=== PATIENT | female | born 1980 | race Caucasian/White ===

== ENCOUNTER → 2017-04-05 | Outpatient (CLI) | payer SELFPAY ==
--- NOTE | 2017-04-06 08:19 | USB ---
Reason for exam: clinical finding. Indicated problem(s): lump or thickening in the left breast. Physical Findings: Nurse Summary: All soft nodular movable. Accessory tissue bilateral axilla. Left axilla more prominent tissue (nurse ts). US Breast LT Left breast ultrasound includes all four quadrants, the retroareolar region and axilla. Finding is negative. Left axilla is slightly more prominent, soft tissue, otherwise is within normal limits. These results were verbally communicated with the patient and result sheet given to the patient on 04/05/17. ASSESSMENT: Negative, BI-RAD 1 RECOMMENDATION: Routine screening mammogram of both breasts at age 41. Manage patient on a clinical basis.
== END | disposition home or self-care (01) ==
LOC: RADUSWWP 14:18
PROVIDERS: ATTEND Family Medicine
DX: R22.2 Localized swelling, mass and lump, trunk (principal)

== ENCOUNTER 2017-06-02 10:16 | Day surgery (SDC) | payer OTHER ==
[2017-05-30 10:41] VITALS: BMI 23.3
[~2017-06-02 10:16] MED LIST: DEXAMETHASONE SOD PHOSPHATE 10 MG/ML 1 ML VIAL IV ONE; HEPARIN SODIUM,PORCINE 5,000 UNIT/ML 1 ML VIAL SQ ONE; HYDROmorphone 1 MG/ML 1 ML SYRINGE IVP PRN; LACTATED RINGERS 1,000 ML IV SCH; ONDANSETRON 4 MG/2 ML VIAL IVP PRN; Pre Op ABX Message 1 EACH MISC MISCELLANE ONE; SCOPOLAMINE 1.5MG/72HR PATCH TRANSDERM ONE
[2017-06-02 10:44] VITALS: RESP 16; TEMP 97.4
[2017-06-02] MEDS ORDERED: LIDOCAINE 1% 20 ML VIAL (10MG/ML) FOR IV START INTRADERMA ONE (11:00)
[2017-06-02] MEDS ORDERED: MIDAZOLAM 2 MG/2 ML VIAL IV ONE (11:05)
[2017-06-02] MEDS ORDERED: MIDAZOLAM 2 MG/2 ML VIAL ONE (13:38)
[2017-06-02] MEDS ORDERED: PROPOFOL 10 MG/ML 20 ML VIAL IV ONE (13:38)
[2017-06-02] MEDS ORDERED: fentaNYL (PF) 50 MCG/ML 2 ML AMP ONE (13:38)
[2017-06-02] MEDS ORDERED: SODIUM CHLORIDE 0.9% IV ONE ×2 (13:56)
[2017-06-02] MEDS ORDERED: CLINDAMYCIN IV ONE ×2 (13:56)
[2017-06-02] MEDS ORDERED: LIDOCAINE 2%-EPI 1:100,000 20 ML VIAL SQ ONE ×2 (13:58)
[2017-06-02 15:34] VITALS: BP 91/52; PULSE 89
--- NOTE | 2017-06-05 16:48 | P.OP ---
Date of Procedure: 06/02/17 Preoperative Diagnosis: Left axillary tender mass Postoperative Diagnosis: Same Procedure(s) Performed: Excision left axillary mass Closure of the resulting defect in 2 layers Implants: NA Anesthesia: MAC, local Surgeon: Sara Olmos Pathology: other Condition: stable Disposition: PACU Indications for Procedure: 36 years old female presents with a tender lump in the left axilla. Ultrasound did not show any discrete mass. She continues to feel the tender mass which is ill-defined, mobile on clinical exam. Informed consent obtained and patient elected to undergo surgical excision. Operative Findings: Description of Procedure: The patient was brought to the operating room and placed in supine position with left arm out. The axilla was prepped and draped using sterile aseptic precautions. The palpable mass was felt inferior to the left axillary hairline. 3 cm skin incision was made and this was deepened to the subcutaneous tissue. There was thickened cystic area noted at the site of palpable abnormality. A 3.5 x 3 x 2 cm circumferential breast tissue was removed which included the palpable abnormality. Hemostasis was checked. The cavity was closed in 2 layers using interrupted sutures of 3-0 Vicryl and 4-0 subcuticular Monocryl. The sponge, instrument and needle count were correct 2. Patient tolerated the procedure well and was taken to post anesthesia care unit Final Pathologic Diagnosis SOFT TISSUE, LEFT AXILLARY, EXCISION: BENIGN BREAST TISSUE WITH FIBROCYSTIC CHANGES AND PROMINENT ADIPOSE TISSUE SUGGESTIVE OF A LIPOMA.
== END 2017-06-02 16:15 | disposition home or self-care (01) ==
LOC: OR 10:16
PROVIDERS: ATTEND Surgery
DX: N60.12 Diffuse cystic mastopathy of left breast (principal); Z88.0 Allergy status to penicillin
CPT/HCPCS: 81025; 88305; 21552; J2250; J1644; J1100; J2405; J3010; J2704

== ENCOUNTER → 2018-01-02 | Outpatient (CLI) | payer BC ==
--- NOTE | 2018-01-03 00:56 | WWHP ---
[facility] - HISTORY AND PHYSICAL CHIEF COMPLAINT: The patient is here for her routine gynecologic exam and for control pills. HPI: This is a 37-year-old, G2, P2, with an LMP of 12/12/2017, who is on Necon 0.5/35 oral contraception pills. She has been on oral contraception for many years and has done well with them. She is without gynecologic complaints. PAST MEDICAL HISTORY: Well-controlled chronic hypertension. MEDICATIONS: 1. Tribenzor 20/5/12.5 1 daily. 2. Necon 0.5/35 1 daily. 3. Clindamycin 150 mg q.6 hours, which she is temporarily taking following oral surgery. ALLERGIES: Allergies to PENICILLIN, which caused a rash. PAST SURGICAL HISTORY: Lipoma removed from the left axillary region in 2017 and oral surgery in the past. PAST OB HISTORY: Two vaginal deliveries. 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 SOCIAL HISTORY: She denies tobacco, alcohol, and drug use. She has been since 2013 and this is her second marriage. 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 FAMILY HISTORY: Paternal grandmother and maternal aunt had breast cancer. REVIEW OF SYSTEMS: Weight has been stable. She denies respiratory, cardiac or GI problems. PHYSICAL EXAM: Blood pressure 114/66, height 5 feet 6 inches, weight 137 pounds, BMI 22. Temperature 98.3, pulse 108. This is a well-developed, well-nourished white female who is alert and oriented x3, in no acute distress. HEENT: Within normal limits. NECK: Supple without mass or thyromegaly. CHEST AND LUNGS: Clear to auscultation. HEART: Regular rate and rhythm. Breasts are without mass or discharge. Axillary exam is negative for adenopathy. BACK: Negative for CVA tenderness. ABDOMEN: Soft, nontender, without palpable masses. PELVIC: Normal external genitalia. Cervix and vagina appear normal. There is no unusual discharge. The uterus is retroverted, nongravid size and nontender. There are no palpable adnexal masses or tenderness. Rectal exam is negative for mass or tenderness. EXTREMITIES: Nontender. IMPRESSION: 1. [age] year-old gynecologically healthy female, doing well on oral contraception. 2. Well-controlled chronic hypertension. PLAN: 1. Pap smear was performed. 2. Self breast examination was discussed. 3. Mammogram was done on 04/05/2017 and was benign. 4. We have discussed contraception and control options. She understands that she should not take oral contraception if her blood pressure is not well controlled. We have also discussed increased risk such as increased risk for blood clots, heart attack, and stroke. She understands these things and would like to continue on oral contraception. Prescription for Necon 0.5/35 was given to the patient for the upcoming year. She will do home blood pressure checks daily as she has done in the past. She will call if she is having blood pressure elevations. 5. She will return in 1 year. MMODL / IJN: [id number] /
== END | disposition home or self-care (01) ==
LOC: WWCWWP 14:42
PROVIDERS: ATTEND Obstetrics & Gynecology
DX: Z53.9 Procedure and treatment not carried out, unspecified reason (principal)

== ENCOUNTER → 2018-05-17 | Outpatient (CLI) | payer BC ==
[2018-05-17 18:04] LABS: ALT 32 U/L (9-52); AST 21 U/L (14-36); Albumin 4.3 g/dL (3.5-5.0); Alkaline Phosphatase 47 U/L (38-126); Anion Gap 9 mmol/L; Blood Urea Nitrogen 16 mg/dL (7-17); Calcium 9.7 mg/dL (8.4-10.2); Carbon Dioxide 26 mmol/L (22-30); Chloride 104 mmol/L (98-107); Glucose 87 mg/dL (74-99); Sodium 139 mmol/L (137-145); Total Bilirubin 0.4 mg/dL (0.2-1.3); Total Protein 7.1 g/dL (6.3-8.2)
== END | disposition home or self-care (01) ==
LOC: LABWHC1 17:06
PROVIDERS: ATTEND Internal Medicine Interventional Cardiology
DX: I10 Essential (primary) hypertension (principal)
CPT/HCPCS: 36415; 80053

== ENCOUNTER → 2019-01-08 | Outpatient (CLI) | payer BC ==
[2019-01-08 16:09] VITALS: BP 118/72; PULSE 73; RESP 18; TEMP 97; BMI 23.4
--- NOTE | 2019-01-08 17:02 | P.HPOB ---
History of Present Illness H&P Date: 01/08/19 Chief Complaint: The patient is here for her routine gynecologic exam. This is a 38-year-old with an LMP of 12/11/2018. The patient is on [employer] 0.5/35 for control. She would like to continue on with oral contraception and states she has done well with them. She is feeling a lump in the area between her left breast and axillary region. The lump feels about grape size. She previously had a lipoma removed from the left axillary region in 2017, but the patient states the lump did not seem to go away after the lipoma was removed. She is otherwise without complaints. Review of Systems The patient has gained 6 pounds over the last year. She denies respiratory, cardiac, or G.I. problems. 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 History of Any Multi-Drug Resistant Organisms: None Reported Additional Past Surgical History / Comment(s): Lipoma removed from the left axillary region 2017. Oral surgery. Past Anesthesia/Blood Transfusion Reactions: No Reported Reaction Past Psychological History: No Psychological Hx Reported Smoking Status: Never smoker Past Alcohol Use History: None Reported Past Drug Use History: None Reported Additional History: She has been since 2013 and this is her 2nd marriage. 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 - Past Family History Mother Family Medical History: No Reported History Additional Family Medical History / Comment(s): Maternal aunt had breast cancer. Father Family Medical History: No Reported History Additional Family Medical History / Comment(s): Paternal grandmother had breast cancer. Medications and Allergies Home Medications Medication Instructions Recorded Confirmed Type Olmesartan/Amlodipin/Hcthiazid 1 each PO QAM 05/30/17 01/08/19 History [Tribenzor 40-10-25 mg Tablet] Allergies Allergy/AdvReac Type Severity Reaction Status Date / Time Penicillins Allergy Rash/Hives Verified 06/02/17 10:37 Exam Vital Signs Temp Pulse Resp BP Pulse Ox 01/08/19 16:07 97.0 F L 73 18 118/72 100 Intake and Output 01/08/19 01/08/19 01/08/19 06:59 14:59 22:59 Other: Weight 64.864 kg Height 5 feet 5.5 inches, weight 143 pounds, BMI 23.4. This is a well-developed well-nourished white female who is alert and oriented times 3 in no acute distress. HEENT: Within normal limits. NECK: Supple without mass or thyromegaly. CHEST AND LUNGS: Clear to auscultation. HEART: Regular rate and rhythm. BREASTS: there is a 2 x 2 cm soft mass in the area of the left breast tail near the axilla. It is slightly mobile and nontender. There is no erythema. There are no other breast masses. There is no nipple discharge. AXILLARY EXAM: Negative for adenopathy. BACK: Negative for CVA tenderness. ABDOMEN: Soft, nontender, without palpable masses. PELVIC EXAM: Normal external genitalia. Cervix and vagina appear normal. There is no unusual discharge. There is no evidence of prolapse. The uterus is retroverted, nongravid size and nontender. There are no palpable adnexal masses or tenderness. RECTAL EXAM: negative for mass or tenderness. EXTREMITIES: Nontender. IMPRESSION: 1. 38-year-old female doing well on oral contraception. 2. Mass measuring 2 x 2 cm in the left tail of the breast near the axilla. Differential diagnosis will include lipoma, breast neoplasm, and lymph node enlargement. 3. Family history of breast cancer in 2 second-degree relatives. PLAN: 1. Pap smear was deferred since she had a normal one on 01/02/2018. 2. Self breast awareness was discussed with the patient. 3. We will plan on having her get a baseline diagnostic mammogram and left breast ultrasound. 4. She will be referred to Dr. Lefty Jurado to further evaluate the left breast mass. 5. She will continue oral contraception at this time since I believe the mass most likely represents a benign lipoma. She understands that if this turns out to be a breast neoplasm, there may be the need to discontinue the oral contraception. We also discussed how I would will recommend changing her control method at age 41 as well as of her hypertension. Since it is well- controlled at this time I will allow her to continue using this until age 41. We have discussed other options including tubal sterilization, vasectomy and the IUD. The prescription for Neocon 0.5/3.5 will be sent to [facility] pharmacy on . She will return in one year for her annual woman exam.
== END | disposition home or self-care (01) ==
LOC: WWCWWP 15:54
PROVIDERS: ATTEND Obstetrics & Gynecology
DX: Z53.9 Procedure and treatment not carried out, unspecified reason (principal)

== ENCOUNTER → 2019-02-01 | Outpatient (CLI) | payer BC ==
--- NOTE | 2019-02-01 15:06 | MM ---
Reason for exam: clinical finding. History: Family history of breast cancer in paternal grandmother and breast cancer in aunt at age 40. Taking hormonal contraceptives beginning at age 21. Physical Findings: Nurse Summary: 2cm adenopathy in the left breast (nurse dw). MG 3D Diag Mammo W/Cad GAGANDEEP Bilateral CC and MLO view(s) were taken. There are regional axillary coarse right calcifications, sone on the skin surface associated with a focal asymmetry. Ultrasound will be performed for the focal asymmetry. The skin surface calcifications are benign. Other axillary calcifications may relate to prior trauma, granulomatous disease, Sclerosing adenosis in accessory breast tissue or much less likely neoplasm. These results were verbally communicated with the patient and result sheet given to the patient on 02/01/19. ASSESSMENT: Incomplete: need additional imaging evaluation, BI-RAD 0 RECOMMENDATION: Ultrasound of the right breast. (axilla)
--- NOTE | 2019-02-01 15:07 | USB ---
Reason for exam: additional evaluation requested from abnormal screening. History: Family history of breast cancer in paternal grandmother and breast cancer in aunt at age 40. Taking hormonal contraceptives beginning at age 21. US Breast Limited BILAT Right limited breast ultrasound including focal area of concern, retroareolar and axilla demonstrates no cystic or solid lesion seen. Left complete breast ultrasound includes all four quadrants, the retroareolar region and axilla. Finding demonstrates no cystic or solid lesion seen. No sonographic suspicious findings. These results were verbally communicated with the patient and result sheet given to the patient on 02/01/19. ASSESSMENT: Probably benign, BI-RAD 3 RECOMMENDATION: Follow-up diagnostic mammogram of the right breast in 6 months. Manage patient on a clinical basis.
== END | disposition home or self-care (01) ==
LOC: RADMAMWWP 12:55
PROVIDERS: ATTEND Obstetrics & Gynecology
DX: N63.20 Unspecified lump in the left breast, unspecified quadrant (principal)
CPT/HCPCS: 77062; 77066

== ENCOUNTER → 2019-02-15 | Outpatient (CLI) | payer BC ==
[2019-02-15 15:13] VITALS: BP 107/71; PULSE 84; RESP 16; TEMP 98.1; BMI 22.8
--- NOTE | 2019-02-15 15:36 | P.GSHP ---
History of Present Illness H&P Date: 02/15/19 Chief Complaint: a lump between left breast and axilla Judith is a 38-year-old white female who presents with a complaint of a lump on her left breast between her left breast and axilla. She states in 2017 she had a lesion removed from this site which was consistent with a lipoma and face at the area may have come back. The patient has no pain at that site. She has no other nette or lumps in her breast. She states she noted it about two months ago and it has not changed recently. The patient has no history of any trauma or infection in the breast. The lump does not change in size with respect to her periods. The patien had her first mammogram February 01. She also had an ultrasound on the left side. The patient had a bilateral mammogram performed on 320 919. This revealed regional axillary course right calcifications, no lesions of concern were noted in the left breast The patient had a bilateral ultrasound performed on 320 919. This was benign. The recommendation was for repeat right breast mammogram in 6 months time. Family History: maternal aunt: breast in 50's paternal grandmother: breast cancer Hormonal history: Menarche:14 : G2,P2, first at 25, breast fed: yes periods regular BCP: using it now, used it for years hormones: none Past surgical history: 1. Left axillary lump removed Past medical history: Negative Social History: smoke: none alcohol: none drugs: none - Constitutional Constitutional: Denies chills, Denies fever - EENT Eyes: denies blurred vision, denies pain Ears: deny: decreased hearing, tinnitus Ears, nose, mouth and throat: Denies headache, Denies sore throat - Breasts Breasts: bilateral: as per HPI - Cardiovascular Cardiovascular: Reports high blood pressure, Denies chest pain, Denies shortness of breath - Respiratory Respiratory: Denies cough, Denies 7 - Gastrointestinal Gastrointestinal: Denies abdominal pain, Denies diarrhea, Denies nausea, Denies vomiting - Genitourinary (Female) Genitourinary: Denies dysuria, Denies hematuria - Menstruation Menstruation: Reports period normal - Musculoskeletal Musculoskeletal: Denies myalgias - Integumentary Integumentary: Denies pruritus, Denies rash - Neurological Neurological: Denies numbness, Denies weakness - Psychiatric Psychiatric: Denies anxiety, Denies depression - Endocrine Endocrine: Denies fatigue, Denies weight change - Hematologic/Lymphatic Comment: none - Allergic/Immunologic Allergic/Immunologic: Reports as per HPI Past Medical History Past Medical History: Hypertension 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 History of Any Multi-Drug Resistant Organisms: None Reported Past Surgical History: No Surgical Hx Reported Additional Past Surgical History / Comment(s): Lipoma removed from the left axillary region 2017. Oral surgery. Past Anesthesia/Blood Transfusion Reactions: No Reported Reaction Past Psychological History: No Psychological Hx Reported Smoking Status: Never smoker Past Alcohol Use History: None Reported Past Drug Use History: None Reported - Past Family History Mother Family Medical History: No Reported History Additional Family Medical History / Comment(s): Maternal aunt had breast cancer. Father Family Medical History: No Reported History Additional Family Medical History / Comment(s): Paternal grandmother had breast cancer. Medications and Allergies Home Medications Medication Instructions Recorded Confirmed Type Olmesartan/Amlodipin/Hcthiazid 1 each PO QAM 05/30/17 01/08/19 History [Tribenzor 40-10-25 mg Tablet] Norethindrone-Ethinyl Estrad 1 each PO DAILY #84 tablet 01/08/19 Rx [Necon 0.5-35-28 Tablet] Allergies Allergy/AdvReac Type Severity Reaction Status Date / Time Penicillins Allergy Rash/Hives Verified 02/15/19 15:14 Surgical - Exam Vital Signs Temp Pulse Resp BP Pulse Ox 98.1 F 84 16 107/71 98 02/15/19 15:08 02/15/19 15:08 02/15/19 15:08 02/15/19 15:08 02/15/19 15:08 BMI 23.1 - General well developed, well nourished, no distress - Eyes normal ocular movement - ENT no hearing loss, no congestion - Neck trachea midline - Respiratory normal respiratory effort, clear to auscultation - Cardiovascular Rhythm: regular Heart Sounds: normal: S1, S2 - Abdomen Abdomen: soft, non tender, no guarding, no rigid, no rebound - Integumentary normal turgor - Neurologic no disoriented, no combative - Musculoskeletal normal gait, normal posture - Psychiatric oriented to time, oriented to person, oriented to place, speech is normal, memory intact breast exam: Right breast: Multi-positional exam no dominant masses or nodules of concern, fibrocystic breast changes noted, axillary breast tissue non-worrisome Right axilla: No adenopathy of concern Left breast: Multi-positional exam increased nodularity in the axillary tail region at the site of prior lipoma excision, no dominant masses or nodules of concern otherwise Left axilla: No adenopathy of concern Results Mammogram and ultrasound results reviewed Assessment and Plan Assessment: Impression: 1. Radiographic abnormality right breast 2. Fibrocystic breast changes 3. Prior lipoma removed 4. New onset nodularity in the left axillary tail 5. Family history of cancer 6. Hypertension Plan: 1. FNA of nodularity in the upper quadrant of the left breast/axillary tail region 2. Probable resection of this area and the operating room 3. Medical management of hypertension CC: DR. Thompson, DR. Victor, Dr. Cooper
--- NOTE | 2019-02-15 15:43 | P.PCN ---
Date of Procedure: 02/15/19 Preoperative Diagnosis: Nodularity left breast axillary tail Postoperative Diagnosis: same Procedure(s) Performed: Fine-needle aspiration left axillary tail of breast Anesthesia: none Surgeon: Vidya Davidson Estimated Blood Loss (ml): 0 Pathology: other (FNA of left breast axillary tail nodularity) Disposition: same day Indications for Procedure: Increasing nodular area left axillary breast tail Operative Findings: dense tissue Description of Procedure: The skin over the tissue in the left axillary tail region was prepped using alcohol. The area of nodularity was identified. A 22-gauge needle was used to obtain a specimen. The 22-gauge needle was placed on a 12 mL syringe. Suction was applied and several passes into the area were obtained. Tissue was obtained. This was prepared on slides and sent for pathology. The patient basia rated the procedure in stable condition. She will call the beginning of the week for results of the biopsy. She will be scheduled in the near future for resection of th area depending on the biopsy results. CC: Dr. Thompson
== END | disposition home or self-care (01) ==
LOC: WWCWWP 15:05
PROVIDERS: ATTEND Surgery
DX: N63.32 Unspecified lump in axillary tail of the left breast (principal)
CPT/HCPCS: 88173

== ENCOUNTER → 2019-05-02 | Outpatient (CLI) | payer BC ==
[2019-05-02 16:04] VITALS: BP 114/72; PULSE 77; RESP 16; TEMP 98.3; BMI 23.1
--- NOTE | 2019-05-02 16:19 | P.GSHP ---
History of Present Illness H&P Date: 05/02/19 Chief Complaint: Nodularity lateral aspect of left breast extending to the a xillary tail Judith is a 38-year-old white female who presented with a complaint of a lump in her left breast between her left breast and axilla. She states in 2017 she had a lesion removed from this area which was consistent with a lipoma and feels that this may have returned. The patient has no pain at that site. She has no other masses or lumps in her breasts. She states she noted it initially several months ago and it is not changed recently. She has no history of any trauma or infection of the breast. The lump does not fluctuate with respect to her periods. A F[place] of the [place] of concern [place] [id number] and this showed fragments of adipose tissue. The patient had her first mammogram February 01 and also had an ultrasound of the left side. In the bilateral mammogram revealed axillary course right calcifications no lesions of concern noted in the left breast the ultrasound was felt to be benign. This was also bilateral. Recommendation for repeat right breast mammogram in 6 months time was made. Family history: Maternal aunt: Breast cancer in her 50s Paternal grandmother: Breast cancer Hormonal history: Menarche: 14 Pregnancies: -assisted 25, press-fit: Yes Periods: Regular Postoperative pills colon using them now has used it for several years Hormones: Negative Past surgical history 1. Left axillary lump removed Past medical history HTN Social history: Smoke: Negative Alcohol: Negative Drugs: Negative - Constitutional Constitutional: Denies chills, Denies fever - EENT Eyes: denies decreased vision, denies pain Ears: deny: decreased hearing, tinnitus Ears, nose, mouth and throat: Denies headache, Denies sore throat - Breasts Breasts: bilateral: as per HPI - Cardiovascular Cardiovascular: Denies chest pain, Denies shortness of breath - Respiratory Respiratory: Denies cough, Denies 7 - Gastrointestinal Gastrointestinal: Denies abdominal pain, Denies diarrhea, Denies nausea, Denies vomiting - Genitourinary (Female) Genitourinary: Denies dysuria, Denies hematuria - Menstruation Menstruation: Reports period normal - Musculoskeletal Musculoskeletal: Denies myalgias - Integumentary Integumentary: Denies pruritus, Denies rash - Neurological Neurological: Denies numbness, Denies weakness - Psychiatric Psychiatric: Denies anxiety, Denies depression - Endocrine Endocrine: Denies fatigue, Denies weight change - Hematologic/Lymphatic Hematologic/Lymphatic: Reports as per HPI - Allergic/Immunologic Allergic/Immunologic: Reports as per HPI Past Medical History Past Medical History: Hypertension 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 History of Any Multi-Drug Resistant Organisms: None Reported Past Surgical History: No Surgical Hx Reported Additional Past Surgical History / Comment(s): Lipoma removed from the left axillary region 2017. Oral surgery. Past Anesthesia/Blood Transfusion Reactions: No Reported Reaction Past Psychological History: No Psychological Hx Reported Smoking Status: Never smoker Past Alcohol Use History: None Reported Past Drug Use History: None Reported - Past Family History Mother Family Medical History: No Reported History Additional Family Medical History / Comment(s): Maternal aunt had breast cancer. Father Family Medical History: No Reported History Additional Family Medical History / Comment(s): Paternal grandmother had breast cancer. Medications and Allergies Home Medications Medication Instructions Recorded Confirmed Type Olmesartan/Amlodipin/Hcthiazid 1 each PO QAM 05/30/17 05/02/19 History [Tribenzor 40-10-25 mg Tablet] Norethindrone-Ethinyl Estrad 1 each PO DAILY #84 tablet 01/08/19 05/02/19 Rx [Necon 0.5-35-28 Tablet] Allergies Allergy/AdvReac Type Severity Reaction Status Date / Time Penicillins Allergy Rash/Hives Verified 05/02/19 16:00 Surgical - Exam Vital Signs Temp Pulse Resp BP Pulse Ox 98.3 F 77 16 114/72 100 05/02/19 16:01 05/02/19 16:01 05/02/19 16:01 05/02/19 16:01 05/02/19 16:01 BMI 23.1 - General well developed, well nourished, no distress - Eyes normal ocular movement, no icteric - ENT no hearing loss, no congestion - Neck no masses, trachea midline - Respiratory normal expansion, normal respiratory effort, clear to auscultation - Cardiovascular Rhythm: regular Heart Sounds: normal: S1, S2 - Abdomen Abdomen: soft, non tender, no guarding, no rigid, no rebound - Integumentary no rash, no abnormal pigmentation - Neurologic no disoriented, no combative - Musculoskeletal normal gait, normal posture - Psychiatric oriented to time, oriented to person, oriented to place, speech is normal, memory intact breast exam: from 02-15-19 right breast: Multiple positional exam no dominant masses or nodules of concern, fibrocystic breast changes noted, axillary breast tissue non-worrisome Right axilla: No adenopathy of concern Left breast: Multiple positional exam increased nodularity in the axillary tail region site of prior lipoma excision, no other dominant masses or nodules of concern Left axilla: No adenopathy of concern Results Mammogram, ultrasound, FNA results reviewed Assessment and Plan Assessment: Impression: 1. Radiographic abnormality right breast 2. Fibrocystic breast changes 3. Prior lipoma removals 4. New-onset nodularity left axillary tail 5. Family history of cancer 6. Hypertension Plan: 1. FNA of nodular area of the upper right left breast performed consistent with recurrent lipoma 2. Resection of the operating room of the area of nodularity in the left axilla CC: Dr. Thompson, Dr. Victor, Dr. Cooper
== END | disposition home or self-care (01) ==
LOC: WWCWWP 15:43
PROVIDERS: ATTEND Surgery
DX: Z53.9 Procedure and treatment not carried out, unspecified reason (principal)

== ENCOUNTER 2019-05-07 07:10 | Day surgery (SDC) | payer BC ==
[2019-05-03 18:07] VITALS: BMI 22.9
[~2019-05-07 07:10] MED LIST changes: +HYDROmorphone 0.5 MG/0.5 ML SYRINGE IVP PRN; -HYDROmorphone 1 MG/ML 1 ML SYRINGE IVP PRN; +MIDAZOLAM 2 MG/2 ML VIAL IV PRN; +ONDANSETRON 4 MG/2 ML VIAL IVP ONE; -ONDANSETRON 4 MG/2 ML VIAL IVP PRN
[2019-05-07] MEDS ORDERED: LACTATED RINGERS 1,000 ML IV ONE ×2 (07:30→10:55)
[2019-05-07] MEDS ORDERED: LIDOCAINE 1% 20 ML VIAL (10MG/ML) FOR IV START INTRADERMA ONE (07:44)
[2019-05-07] MEDS ORDERED: fentaNYL (PF) 50 MCG/ML 2 ML AMP ONE (08:34)
[2019-05-07] MEDS ORDERED: MIDAZOLAM 2 MG/2 ML VIAL ONE (08:34)
[2019-05-07] MEDS ORDERED: diphenhydrAMINE 50 MG/ML 1 ML VIAL ONE (08:34)
[2019-05-07] MEDS ORDERED: PROPOFOL 10 MG/ML 20 ML VIAL IV ONE (08:34)
[2019-05-07] MEDS ORDERED: KETOROLAC 30 MG/ML 1 ML VIAL ONE (08:34)
[2019-05-07] MEDS ORDERED: LIDOCAINE 1% INJ 10MG/ML (20 ML MDV) SQ ONE ×3 (09:17→09:44)
[2019-05-07] MEDS ORDERED: HEPARIN SODIUM,PORCINE 5,000 UNIT/ML 1 ML VIAL SQ ONE (09:46)
--- NOTE | 2019-05-07 09:51 | P.OP ---
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 She had several years ago undergone excision of a lipoma from this site. The concern was that the lipoma had returned and was increasing in size. Patient was taken to the operating room and the area of concern was prepped and draped in a sterile fashion following induction of anesthesia. Incision was made over the area of palpable abnormality. There was noted to be scar tissue at this site and what appeared to be a pocket for prior surgery had been performed. Just posterior to this was lipomatous tissue. Incision was made down into this area and the area was excised. The lesion was approximately 5 x 3 cm in size. After we evaluated the area for hemostasis the wound was well irrigated. Hemostasis was attained using electrocautery device. The skin was then closed using 4-0 Monocryl. It was reinforced with a 4-0 nylon suture. Deep sutures were initially placed over these caused retraction on the skin did not close the anterior wall therefore the deep sutures were removed. The specimen was sent to pathology. The patient tolerated the procedure in stable condition.
--- NOTE | 2019-05-07 09:53 | P.DS ---
Providers Attending physician: Vidya Davidson Primary care physician: Dakota Victor Plan - Discharge Summary Discharge Rx Participant: No New Discharge Prescriptions: No Action Olmesartan/Amlodipin/Hcthiazid [Tribenzor 40-10-25 mg Tablet] 1 each PO QAM Norethindrone-Ethinyl Estrad [Necon 0.5-35-28 Tablet] 1 each PO HS Discharge Medication List Olmesartan/Amlodipin/Hcthiazid [Tribenzor 40-10-25 mg Tablet] 1 each PO QAM 05/30/17 [History] Norethindrone-Ethinyl Estrad [Necon 0.5-35-28 Tablet] 1 each PO HS 05/03/19 [History] Follow up Appointment(s)/Referral(s): Vidya Davidson MD [STAFF PHYSICIAN] - 1 Week Patient Instructions/Handouts: *Surgery [facility] - Scopalamine Patch Instructions Activity/Diet/Wound Care/Special Instructions: Patient may shower after [address] today, do not drive if taking opioid pain medication Discharge Disposition: HOME SELF-CARE
[2019-05-07] MEDS ORDERED: ONDANSETRON 4 MG/2 ML VIAL IVP ONE (09:55)
[2019-05-07 10:11] VITALS: TEMP 97
[2019-05-07 10:40] VITALS: RESP 16
[2019-05-07 12:07] VITALS: BP 95/59; PULSE 56
== END 2019-05-07 12:34 | disposition home or self-care (01) ==
LOC: OR 07:10
PROVIDERS: ATTEND Surgery
DX: D17.1 Benign lipomatous neoplasm of skin and subcutaneous tissue of trunk (principal); N60.12 Diffuse cystic mastopathy of left breast; I10 Essential (primary) hypertension; Z79.899 Other long term (current) drug therapy; Z88.0 Allergy status to penicillin; Z80.3 Family history of malignant neoplasm of breast; Z79.890 Hormone replacement therapy
CPT/HCPCS: 81025; 88304; 21552; J2250; J1200; J1644; J1100; J2405; J2001; J3010; J1885; J2704

== ENCOUNTER → 2019-05-16 | Outpatient (CLI) | payer BC ==
[2019-05-16 13:07] VITALS: BP 102/70; PULSE 84; RESP 16; TEMP 97.3; BMI 23.1
--- NOTE | 2019-05-16 13:29 | P.PN ---
Progress Note - Text Progress Note Date: 05/16/19 Judith is status post excision of an intramammary lipoma from the left breast axillary tail region on 7218. Postoperatively she has done well with no complaints. The patient on her first mammogram of March 2919 was recommended to undergo repeat right breast mammogram in 6 months time. Physical exam: Examination of the left breast incision shows it to be clean and dry with no evidence of infection or hematoma Impression: 1. Patient status post excision lipoma left axillary breast tail 2. Mammogram from March 2019 recommending right breast mammogram in 6 months Plan: 1. Bilateral mammogram in 6 months for physician exam at that time CC: Dr. Victor
== END | disposition home or self-care (01) ==
LOC: WWCWWP 12:50
PROVIDERS: ATTEND Surgery
DX: Z53.9 Procedure and treatment not carried out, unspecified reason (principal)

== ENCOUNTER → 2020-03-27 | Outpatient (CLI) | payer BC ==
--- NOTE | 2020-03-28 07:59 | XR ---
Right shoulder HISTORY: Right shoulder pain 4 views of the right shoulder Bone mineralization, joint spaces and alignment are maintained. Right lung apex as visualized is norm al. No fracture or dislocation. IMPRESSION: Normal right shoulder.
== END | disposition home or self-care (01) ==
LOC: RADXRMAIN 17:05
PROVIDERS: ATTEND Nurse Practitioner Family
DX: M25.511 Pain in right shoulder (principal)

== ENCOUNTER → 2020-05-19 | Outpatient (CLI) | payer BC ==
[2020-05-19 16:22] VITALS: BP 112/75; PULSE 75; RESP 18; TEMP 98.2
--- NOTE | 2020-05-19 17:16 | P.HPOB ---
History of Present Illness H&P Date: 05/19/20 Chief Complaint: The patient is here for her routine gynecologic exam. This is a 39-year-old with an LMP of 05/05/2020. The patient is using Necon for control. She states she is doing well with this and is without gynecologic complaints. She had a left axillary lipoma removed one year ago prior to that she had a mammogram done because of the axillary mass and a day recommended a right follow-up mammogram in 6 months which the patient did not have done. Review of Systems The patient's weight has been stable over the last year. She denies respiratory, cardiac, or G.I. problems. 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 History of Any Multi-Drug Resistant Organisms: None Reported Past Surgical History: No Surgical Hx Reported Additional Past Surgical History / Comment(s): Lipoma removed from the left axillary region 2017. Oral surgery. Past Anesthesia/Blood Transfusion Reactions: No Reported Reaction Past Psychological History: No Psychological Hx Reported Smoking Status: Never smoker Past Alcohol Use History: Occasional (0-2 per month) Past Drug Use History: None Reported Additional History: The patient has been since 2013 and this is her second marriage. 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 - Past Family History Mother Family Medical History: No Reported History Additional Family Medical History / Comment(s): Maternal aunt had breast cancer. Father Family Medical History: Hypertension Additional Family Medical History / Comment(s): Paternal grandmother had breast cancer. Medications and Allergies Home Medications Medication Instructions Recorded Confirmed Type Olmesartan/Amlodipin/Hcthiazid 1 each PO QAM 05/30/17 05/19/20 History [Tribenzor 40-10-25 mg Tablet] Norethindrone-Ethinyl Estrad 1 each PO HS 05/03/19 05/19/20 History [Necon 0.5-35-28 Tablet] Allergies Allergy/AdvReac Type Severity Reaction Status Date / Time Penicillins Allergy Rash/Hives Verified 05/19/20 16:09 Exam Vital Signs Temp Pulse Resp BP Pulse Ox 05/19/20 16:10 98.2 F 75 18 112/75 99 Intake and Output 05/19/20 05/19/20 05/19/20 06:59 14:59 22:59 Other: Weight 64.864 kg Height 5 feet 5 inches, weight 143 pounds, BMI 23.8. This is a well-developed well-nourished white female who is alert and oriented times 3 in no acute distress. HEENT: Within normal limits. NECK: Supple without mass or thyromegaly. CHEST AND LUNGS: Clear to auscultation. HEART: Regular rate and rhythm. BREASTS: Are without mass or discharge. The area of the left axillary lipoma removal is well-healed and without mass. AXILLARY EXAM: Negative for adenopathy. BACK: Negative for CVA tenderness. ABDOMEN: Soft, nontender, without palpable masses. PELVIC EXAM: Normal external genitalia. Cervix and vagina appear normal. There is no unusual discharge. There is no evidence of prolapse. The uterus is midposition, nongravid size and nontender. There are no palpable adnexal masses or tenderness. RECTAL EXAM: negative for mass or tenderness. EXTREMITIES: Nontender. IMPRESSION: 1. 39-year-old female with normal gynecologic exam who is doing well on oral contraception. 2. History of well-controlled chronic hypertension. PLAN: 1. Pap smear was performed. 2. Self breast awareness was discussed with the patient. 3. Right diagnostic mammogram is due as recommended from her previous 2019 diagnostic mammogram. The order slip was given to the patient for this. 4. Continue Necon oral contraception. Since her blood pressure is well controlled, I will continue to prescribe this until age 41 at which time we will consider changing to a different type of control. We have discussed other options including IUD as well as male and female sterilization procedures. 5. We have discussed the HPV vaccination series for which her 2 daughters are candidates. 6. She was advised to return in one year for her annual well woman exam.
--- NOTE | 2020-06-02 10:25 | P.PN ---
Progress Note - Text Progress Note Date: 06/02/20 OUTPATIENT FOLLOW-UP NOTE TEST(S)/RESULTS: Test results from 05/19/2020 including Pap smear showing ASCUS with negative high-risk HPV reflex testing. METHOD OF NOTIFICATION: She was notified by phone. PATIENT COMMENTS: The patient states she has not had any issues with Pap smears in the past. DIAGNOSIS: ASCUS Pap smear with negative high-risk HPV reflex testing. DISCUSSION: We have discussed the mild abnormality of the Pap smear and the rationale for doing reflex HPV testing. Nothing further needs to be done at this time, but I have stressed the importance of repeating the Pap smear cytology and HPV testing in 2-3 years. PLAN: She was advised to return in one year for her annual well woman exam.
== END | disposition home or self-care (01) ==
LOC: WWCWWP 16:00
PROVIDERS: ATTEND Obstetrics & Gynecology
DX: Z53.9 Procedure and treatment not carried out, unspecified reason (principal)

== ENCOUNTER → 2020-08-05 | Outpatient (CLI) | payer BC ==
--- NOTE | 2020-08-06 08:20 | MM ---
Reason for exam: additional evaluation requested from prior study. Last mammogram was performed 1 year and 6 months ago. History: Family history of breast cancer in paternal grandmother at age 50 and breast cancer in maternal aunt at age 40. Excisional biopsy of the left breast, May 2019. Taking hormonal contraceptives beginning at age 21. Physical Findings: Nurse did not find any significant physical abnormalities on exam. MG 3D Diag Mammo W/Cad GGAANDEEP Bilateral CC, MLO, and XCCL view(s) were taken. Prior study comparison: February 01, 2019, bilateral MG 3d diag mammo w/cad GAGANDEEP. The breast tissue is heterogeneously dense. This may lower the sensitivity of mammography. No significant new findings when compared with previous films. These results were verbally communicated with the patient and result sheet given to the patient on 08/05/20. ASSESSMENT: Benign, BI-RAD 2 RECOMMENDATION: Routine screening mammogram of both breasts in 1 year.
== END | disposition home or self-care (01) ==
LOC: RADMAMWWP 14:22
PROVIDERS: ATTEND Obstetrics & Gynecology
DX: R92.8 Other abnormal and inconclusive findings on diagnostic imaging of breast (principal)
CPT/HCPCS: 77062; 77066

== ENCOUNTER → 2021-01-22 | Outpatient (CLI) | payer BC ==
[2021-01-22 21:10] LABS: African American GFR (CKD) 82.2 (60.0-200.0); Albumin 4.6 g/dL (3.80-4.90); Albumin/Globulin Ratio 1.84 (1.60-3.17); Anion Gap 10.4 mmol/L (4.00-12.00); Calcium 9.8 mg/dL (8.7-10.3); Carbon Dioxide 24.6 mmol/L (21.6-31.8); Globulin 2.5 g/dL (1.6-3.3); Non-African American GFR(CKD) 70.9 (60.0-200.0); Potassium 4.4 mmol/L (3.5-5.5); Total Bilirubin 0.5 mg/dL (0.2-1.2); Total Protein 7.1 g/dL (6.2-8.2)
== END | disposition home or self-care (01) ==
LOC: LABWHC1 11:55
PROVIDERS: ATTEND Nurse Practitioner Adult Health
DX: I10 Essential (primary) hypertension (principal)
CPT/HCPCS: 36415; 80053

== ENCOUNTER → 2021-10-26 | Outpatient (CLI) | payer BC ==
[2021-10-26 16:16] VITALS: BP 116/79; PULSE 81; RESP 18; TEMP 97.5
--- NOTE | 2021-10-26 17:05 | P.HPOB ---
History of Present Illness H&P Date: 10/26/21 Chief Complaint: The patient is here for her routine gynecologic exam. This is a 41-year-old with an LMP of 10/19/2021. The patient is without gynecologic complaints and denies any problems with the control pills. Review of Systems The patient's weight has been stable over the last year. She denies respiratory, cardiac, or G.I. problems. 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 History of Any Multi-Drug Resistant Organisms: None Reported Past Surgical History: No Surgical Hx Reported Additional Past Surgical History / Comment(s): Lipoma removed from the left axillary region 2017. Oral surgery. Past Anesthesia/Blood Transfusion Reactions: No Reported Reaction Past Psychological History: No Psychological Hx Reported Smoking Status: Never smoker Past Alcohol Use History: Occasional (0-2 per month) Past Drug Use History: None Reported Additional History: She has been since 2013 and this is her second marriage. 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 - Past Family History Mother Family Medical History: No Reported History Additional Family Medical History / Comment(s): Maternal aunt had breast cancer. Father Family Medical History: Hypertension Additional Family Medical History / Comment(s): Paternal grandmother had breast cancer. Medications and Allergies Home Medications Medication Instructions Recorded Confirmed Type Olmesartan/Amlodipin/Hcthiazid 1 each PO QAM 05/30/17 10/26/21 History [Tribenzor 40-10-25 mg Tablet] Norethindrone-Ethinyl Estrad 1 each PO HS #84 tab 05/19/20 10/26/21 Rx [Necon 0.5-35-28 Tablet] Allergies Allergy/AdvReac Type Severity Reaction Status Date / Time Penicillins Allergy Rash/Hives Verified 10/26/21 16:17 Exam Vital Signs Temp Pulse Resp BP Pulse Ox 10/26/21 16:13 97.5 F L 81 18 116/79 100 Intake and Output 10/26/21 10/26/21 10/26/21 06:59 14:59 22:59 Other: Weight 64.41 kg Height 5 feet 5 inches, weight 142 pounds, BMI 23.6. This is a well-developed well-nourished white female who is alert and oriented times 3 in no acute distress. HEENT: Within normal limits. NECK: Supple without mass or thyromegaly. CHEST AND LUNGS: Clear to auscultation. HEART: Regular rate and rhythm. BREASTS: Are without mass or discharge. AXILLARY EXAM: Negative for adenopathy. BACK: Negative for CVA tenderness. ABDOMEN: Soft, nontender, without palpable masses. PELVIC EXAM: Normal external genitalia. Cervix and vagina appear normal. There is no unusual discharge. There is no evidence of prolapse. The uterus is retroverted, nongravid size and nontender. There are no palpable adnexal masses or tenderness. RECTAL EXAM: negative for mass or tenderness and is negative for occult blood. EXTREMITIES: Nontender. IMPRESSION: 1. 41-year-old female doing well on oral contraception, with normal gynecologic exam. 2. History of chronic hypertension which is well controlled with medication. 3. Previous Pap smear was ASCUS with negative high-risk HPV testing. PLAN: 1. Pap smear was deferred. We will plan on doing a cotest Pap smear in one year. 2. Self breast awareness was discussed with the patient. We have also discussed symptoms associated with inflammatory breast cancer. 3. I recommended screening mammogram and the order slip was given to the patient for this. 4. Osteoporosis prevention was discussed. I have stressed the importance of adequate calcium, vitamin D and regular exercise. Recommended amounts of calcium and vitamin D were also discussed. 5. I have recommended that she use a different method of control. We have discussed how the risk of control pills can gradually increase with age and with her history of chronic hypertension, this risk may be greater for things including [place], CVA, and blood clots. She understands this. Her is planning on getting a vasectomy in the near future. I have recommended that he see a urologist for this and that he goes to the follow-up appointments to determine when the vasectomy is fully effective. I have recommended that she use a form of control until the vasectomy is found to be effective. She would like to continue to use the control pill until then. We have discussed alternative methods of control. Since her blood pressure has been under good control. She can continue the pills until the vasectomy has been found to be effective. The electronic prescription will be sent to [facility] on [address]. This will be limited to 3 months with an additional 3 month refill. This will give them 6 months for him to have his vasectomy and for the follow-up. 6. She has completed her Covid vaccination series and is considering getting a booster shot. 7. She was advised to return in one year for her annual well woman exam. She will call if she has any questions regarding control.
== END ==
LOC: WWCWWP 16:04
PROVIDERS: ATTEND Obstetrics & Gynecology
DX: Z01.419 Encounter for gynecological examination (general) (routine) without abnormal findings (principal); I10 Essential (primary) hypertension; Z79.899 Other long term (current) drug therapy; Z88.0 Allergy status to penicillin

== ENCOUNTER 2023-01-19 21:04 | Emergency (ER) | payer BC ==
[2023-01-19 21:10] VITALS: BP 137/99; RESP 18; TEMP 97.8
[2023-01-19] MEDS ORDERED: TRANEXAMIC ACID 1,000 MG/10 ML VIAL IRRIGATION ONE (21:45)
[2023-01-19] MEDS ORDERED: LIDOCAINE 1%/EPI 1:200,000 MPF 10 ML VIAL SQ STA (22:36)
[2023-01-19] MEDS ORDERED: GELATIN SPONGE,ABSORB (LARGE) 1 EACH SPONGE TOPICAL STA (23:25)
[2023-01-19 23:37] VITALS: PULSE 94
--- NOTE | 2023-01-19 23:44 | ED ---
Recheck HPI - General Chief Complaint: Recheck/Abnormal Lab/Rx Stated Complaint: S/P procedural bleeding Time Seen by Provider: 01/19/23 21:28 Source: patient Mode of arrival: ambulatory Limitations: no limitations - History of Present Illness Initial Comments: Patient is a 42-year-old female presenting with chief complaint of bleeding after cyst removal with Dr. Jameson office today. Patient states that she had 2 cysts removed from her back by Dr. Olea today. She states that when she initially left the office she noticed recurrent bleeding, she came back to the office where Dr. Olea removed the stitches he had placed and had cauterized wound. Bleeding appeared to be under control. Patient states that bleeding then started again and she was advised to report to the ER. Patient has no history of bleeding disorders. No dizziness or lightheadedness. No palpitations or weakness. - Related Data Home Medications Medication Instructions Recorded Confirmed Olmesartan/Amlodipin/Hcthiazid 1 tab PO DAILY 05/30/17 01/19/23 [Tribenzor 40-10-25 mg Tablet] Potassium Chloride ER [K-Dur 10] 10 meq PO DAILY 01/19/23 01/19/23 Lorena 28 1 tab PO DAILY 01/19/23 01/19/23 Allergies Allergy/AdvReac Type Severity Reaction Status Date / Time Penicillins Allergy Rash/Hives Verified 01/19/23 22:36 Review of Systems ROS Statement: Those systems with pertinent positive or pertinent negative responses have been documented in the HPI. ROS Other: All systems not noted in ROS Statement are negative. 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 History of Any Multi-Drug Resistant Organisms: None Reported Past Surgical History: No Surgical Hx Reported Additional Past Surgical History / Comment(s): Lipoma removed from the left axillary region 2017. Oral surgery. Past Anesthesia/Blood Transfusion Reactions: No Reported Reaction Past Psychological History: No Psychological Hx Reported Smoking Status: Never smoker Past Alcohol Use History: Occasional Past Drug Use History: None Reported - Past Family History Mother Family Medical History: No Reported History Additional Family Medical History / Comment(s): Maternal aunt had breast cancer. Father Family Medical History: Hypertension Additional Family Medical History / Comment(s): Paternal grandmother had breast cancer. General Exam Limitations: no limitations General appearance: alert, in no apparent distress Head exam: Present: atraumatic, normocephalic, normal inspection Eye exam: Present: normal appearance Neck exam: Present: normal inspection, full ROM Neurological exam: Present: alert, oriented X3, CN II-XII intact Psychiatric exam: Present: normal affect, normal mood Skin exam: Present: other (Actively bleeding postprocedural site on the back. There is a smaller site where a smaller cyst was removed from, that bleeding appears well controlled at this time.) Course Vital Signs 01/19/23 01/19/23 21:06 23:36 Temperature 97.8 F Pulse Rate 130 H 94 Respiratory 18 18 Rate Blood Pressure 137/99 O2 Sat by Pulse 100 100 Oximetry Procedures - Laceration Laceration #1 Consent Obtained: verbal consent Indication: other (Recurrent bleeding) Site: back Size (cm): 3 Description: linear Depth: simple, single layer Anesthetic Used: lidocaine 1%, with epi Anesthesia Technique: local infiltration Type of Sutures: nylon Size of Sutures: 4-0 Number of Sutures: 7 Technique: simple, interrupted Laceration #2 Consent Obtained: verbal consent Indication: other (Recurrent bleeding) Site: back Size (cm): 1 Description: linear Anesthetic Used: lidocaine 1%, with epi Type of Sutures: nylon Size of Sutures: 4-0 Number of Sutures: 2 Technique: simple, interrupted Patient Tolerated Procedure: well Medical Decision Making - Medical Decision Making Was pt. sent in by a medical professional or institution (KATIE Daugherty, CERAMIC TILE INSTALLER, urgent care, hospital, or longterm...) When possible be specific @ -sent in by Dr. Olea Did you speak to anyone other than the patient for history (EMS, parent, family, police, friend...)? What history was obtained from this source @ -No Did you review nursing and triage notes (agree or disagree)? Why? @ -I reviewed and agree with nursing and triage notes Were old charts reviewed (outside hosp., previous admission, EMS record, old EKG, old radiological studies, urgent care reports/EKG's, longterm records)? Report findings @ -No old charts were reviewed Differential Diagnosis (chest pain, altered mental status, abdominal pain women, abdominal pain men, vaginal bleeding, weakness, fever, dyspnea, syncope, headache, dizziness, GI bleed, back pain, seizure, CVA, palpatations, mental health, musculoskeletal)? @ -not applicable EKG interpreted by me (3pts min.). @ -As above X-rays interpreted by me (1pt min.). @ -None done CT interpreted by me (1pt min.). @ -None done U/S interpreted by me (1pt. min.). @ -None done What testing was considered but not performed or refused? (CT, X-rays, U/S, labs)? Why? @ -None What meds were considered but not given or refused? Why? @ -None Did you discuss the management of the patient with other professionals (professionals i.e. Dr., PA, CERAMIC TILE INSTALLER, lab, RT, psych nurse, social services director, refinery operator assistant, teacher, jail officer, telephonic nurse case manager)? Give summary @ -No Was smoking cessation discussed for >3mins.? @ -No Was critical care preformed (if so, how long)? @ -No Were there social determinants of health that impacted care today? How? (Homelessness, low income, unemployed, alcoholism, drug addiction, transportation, low edu. Level, literacy, decrease access to med. care, prison, rehab)? @ -No Was there de-escalation of care discussed even if they declined (Discuss DNR or withdrawal of care, Hospice)? DNR status @ -No What co-morbidities impacted this encounter? (DM, HTN, Smoking, COPD, CAD, Cancer, CVA, ARF, Chemo, Hep., AIDS, mental health diagnosis, sleep apnea, morbid obesity)? @ -None Was patient admitted / discharged? Hospital course, mention meds given and route, prescriptions, significant lab abnormalities, going to OR and other pertinent info. @ -The patient is a 42-year-old female presenting with chief complaint of recurrent bleeding. Patient had 2 cysts removed from her back by her PCP Dr. Olea today. After he had tried cauterizing in the office and wounds continue to bleed she reported to the ER. 2 sites are noted. There is a large 3 cm opening or a large cyst was removed, and there is a 1 cm opening for a smaller cyst was removed both located on the back. Bleeding at the smaller site appears well-controlled at this time. Large hematoma is removed. Topical TXA is applied. This showed some improvement of bleeding had not fully resolved. Wound repair was used using lidocaine with epi and simple interrupted sutures. Small piece of Gelfoam was placed over the incision for any remaining bleeding. At this time bleeding appears well-controlled. Patient is educated on wound care and supportive treatment. Follow-up with PCP. Report back to ER with any new or worsening symptoms. Discussed return parameters and answered all questions. Patient conveyed verbal understanding and agreed to the plan. I discussed this case in detail with my attending Dr. Jurado Undiagnosed new problem with uncertain prognosis? @ -No Drug Therapy requiring intensive monitoring for toxicity (Heparin, Nitro, Insulin, Cardizem)? @ -No Were any procedures done? @ -Laceration repair Diagnosis/symptom? @ -Postprocedural bleeding Acute, or Chronic, or Acute on Chronic? @ -Acute Uncomplicated (without systemic symptoms) or Complicated (systemic symptoms)? @ -Uncomplicated Side effects of treatment? @ -No Exacerbation, Progression, or Severe Exacerbation? @ -No Poses a threat to life or bodily function? How? (Chest pain, [place], [place], pneumonia, PE, COPD, DKA, ARF, appy, cholecystitis, CVA, Diverticulitis, Homicidal, Suicidal, threat to staff... and all critical care pts) @ -No Disposition Clinical Impression: Recurrent bleeding Disposition: HOME SELF-CARE Condition: Good Additional Instructions: Follow-up with PCP in one to 2 days. Report back to ER with any new or worsening symptoms. Do not get the wound wet for 24 hours. Afterwards you may wash gently with soap and water. No vigorous activity for 5 days. Sutures may be removed in 10-14 days. Is patient prescribed a controlled substance at d/c from ED?: No Referrals: Jam Olea MD [Primary Care Provider] - 1-2 days Time of Disposition: 23:44
== END 2023-01-20 00:05 | disposition home or self-care (01) ==
LOC: EC 21:04
DX: L76.22 Postprocedural hemorrhage of skin and subcutaneous tissue following other procedure (principal); I10 Essential (primary) hypertension; Z79.899 Other long term (current) drug therapy; Z88.0 Allergy status to penicillin
CPT/HCPCS: 12002; 99283

== ENCOUNTER → 2023-03-21 | Outpatient (CLI) | payer BC ==
[2023-03-21 16:21] VITALS: BP 123/81; PULSE 92; RESP 16; TEMP 97.6
--- NOTE | 2023-03-21 16:59 | P.HPOB ---
History of Present Illness H&P Date: 03/21/23 Chief Complaint: The patient is here for her routine gynecologic exam and ma mmogram. This is a 42-year-old with an LMP of 03/07/2023. The patient's is status post vasectomy. She discontinued her oral contraception in September 2022. Menstrual periods have been regular still after stopping the pills. She is without gynecologic complaints. Review of Systems The patient's weight has been stable over the last year. She denies res piratory, cardiac, or G.I. problems. 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 History of Any Multi-Drug Resistant Organisms: None Reported Past Surgical History: No Surgical Hx Reported Additional Past Surgical History / Comment(s): Lipoma removed from the left axillary region 2016. Benign cysts removed from her back. Oral surgery. Past Anesthesia/Blood Transfusion Reactions: No Reported Reaction Past Psychological History: No Psychological Hx Reported Smoking Status: Never smoker Past Alcohol Use History: Occasional (0-2 per month.) Past Drug Use History: None Reported Additional History: She has been since 2013 and this is her second marriage. 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 - Past Family History Mother Family Medical History: No Reported History Additional Family Medical History / Comment(s): Maternal aunt had breast cancer. Father Family Medical History: COPD, Hypertension Additional Family Medical History / Comment(s): from Covid related complications. Paternal grandmother had breast cancer. Medications and Allergies Home Medications Medication Instructions Recorded Confirmed Type Olmesartan/Amlodipin/Hcthiazid 1 tab PO DAILY 05/30/17 03/21/23 History [Tribenzor 40-10-25 mg Tablet] Potassium Chloride ER [K-Dur 10] 10 meq PO DAILY 01/19/23 03/21/23 History Allergies Allergy/AdvReac Type Severity Reaction Status Date / Time Penicillins Allergy Rash/Hives Verified 03/21/23 16:16 Exam Vital Signs Temp Pulse Resp BP Pulse Ox 03/21/23 16:17 97.6 F 92 16 123/81 99 Intake and Output 03/21/23 03/21/23 03/21/23 06:59 14:59 22:59 Other: Weight 65.317 kg Height 5 feet 5-1/2 inches, weight 144 pounds, BMI 23.6. This is a well-developed well-nourished white female who is alert and oriented times 3 in no acute distress. HEENT: Within normal limits. NECK: Supple without mass or thyromegaly. CHEST AND LUNGS: Clear to auscultation. HEART: Regular rate and rhythm. BREASTS: Are without mass or discharge. AXILLARY EXAM: Negative for adenopathy. BACK: Negative for CVA tenderness. ABDOMEN: Soft, nontender, without palpable masses. PELVIC EXAM: Normal external genitalia. Cervix and vagina appear normal. There is no unusual discharge. There is no evidence of prolapse. The uterus is retroverted, nongravid size and nontender. There are no palpable adnexal masses or tenderness. RECTAL EXAM:negative for mass or tenderness and is negative for occult blood. EXTREMITIES: Nontender. IMPRESSION: 1. 42-year-old female whose is status post vasectomy, with normal gynecologic exam. 2. Previous Pap smear showing ASCUS with negative high-risk HPV testing on 05/19/2020. PLAN: 1. Pap smear cotest was performed. 2. Self breast awareness was discussed with the patient. We have also discussed symptoms associated with inflammatory breast cancer. 3. Screening mammogram will be done today. 4. She was advised to return in one year for her annual well woman exam.
--- NOTE | 2023-03-22 08:54 | MM ---
Reason for Exam: Screening (asymptomatic). Last mammogram was performed 1 year(s) and 3 month(s) ago. Patient History: Menarche at age 14. First Full-Term at age 26. Currently using Hormonal Contraceptives, starting at age 21. 05/2019, Excisional Biopsy on the Left side. Paternal grandmother had breast cancer, age 50. Maternal aunt had breast cancer, age 40. Last menstrual period: 03/07/2023 Risk Values: Jany 5 year model risk: 1.1%. NCI Lifetime model risk: 13.4%. Prior Study Comparison: 02/01/2019 Bilateral Diagnostic Mammogram, [facility]. 08/05/2020 Bilateral Diagnostic Mammogram, [facility]. 12/24/2021 Bilateral Screening Mammogram, [facility]. Tissue Density: The breast tissue is heterogeneously dense. This may lower the sensitivity of mammography. Findings: Analyzed By CAD. There is no suspicious group of microcalcifications or new suspicious mass in either breast. Overall Assessment: Negative, BI-RAD 1 Management: Screening Mammogram of both breasts in 1 year. A clinical breast exam by your physician is recommended on an annual basis and results should be correlated with mammographic findings. Electronically signed and approved by: Gamaliel Boo D.O.
== END ==
LOC: WWCWWP 16:08
PROVIDERS: ATTEND Obstetrics & Gynecology
DX: Z12.31 Encounter for screening mammogram for malignant neoplasm of breast (principal); Z01.419 Encounter for gynecological examination (general) (routine) without abnormal findings; I10 Essential (primary) hypertension; Z88.0 Allergy status to penicillin; Z98.890 Other specified postprocedural states
CPT/HCPCS: 77063; 77067

== ENCOUNTER → 2024-06-04 | Outpatient (CLI) | payer BC ==
[2024-06-04 16:30] VITALS: BP 116/75; PULSE 70; RESP 17; TEMP 98
--- NOTE | 2024-06-04 16:54 | P.HPOB ---
History of Present Illness H&P Date: 06/04/24 Chief Complaint: The patient is here for her routine gynecologic exam and ma mmogram. This is a 43-year-old with an LMP of 05/23/2024. Her is status post vasectomy. She discontinued her oral contraception at the end of 2021. Menstrual periods continue to be regular. She is without gynecologic complaints. Review of Systems The patient has gained 6 pounds over the last year. She denies respiratory, cardiac, or G.I. problems. 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 History of Any Multi-Drug Resistant Organisms: None Reported Past Surgical History: No Surgical Hx Reported Additional Past Surgical History / Comment(s): Lipoma removed from the left axillary region 2016. Benign cysts removed from her back. Oral surgery. Past Anesthesia/Blood Transfusion Reactions: No Reported Reaction Past Psychological History: No Psychological Hx Reported Smoking Status: Never smoker Past Alcohol Use History: Occasional (0-2 drinks per month.) Past Drug Use History: None Reported Additional History: She has been since 2013 and this is her second marriage. 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 - Past Family History Mother Family Medical History: No Reported History Additional Family Medical History / Comment(s): Maternal aunt had breast cancer. Father Family Medical History: COPD, Hypertension Additional Family Medical History / Comment(s): from Covid related complications. Paternal grandmother had breast cancer. Medications and Allergies Home Medications Medication Instructions Recorded Confirmed Type Olmesartan/Amlodipin/Hcthiazid 1 tab PO DAILY 05/30/17 06/04/24 History [Tribenzor 40-10-25 mg Tablet] Potassium Chloride ER [K-Dur 10] 10 meq PO DAILY 01/19/23 06/04/24 History Allergies Allergy/AdvReac Type Severity Reaction Status Date / Time Penicillins Allergy Rash/Hives Verified 06/04/24 16:27 Exam Vital Signs Temp Pulse Resp BP Pulse Ox 06/04/24 16:28 98 F 70 17 116/75 100 Intake and Output 06/04/24 06/04/24 06/04/24 06:59 14:59 22:59 Other: Weight 68.039 kg Height 5 feet 6 inches, weight 150 pounds, BMI 24.2. This is a well-developed well-nourished white female who is alert and oriented times 3 in no acute distress. HEENT: Within normal limits. NECK: Supple without mass or thyromegaly. CHEST AND LUNGS: Clear to auscultation. HEART: Regular rate and rhythm. BREASTS: Are without mass or discharge. AXILLARY EXAM: Negative for adenopathy. BACK: Negative for CVA tenderness. ABDOMEN: Soft, nontender, without palpable masses. PELVIC EXAM: Normal external genitalia. Cervix and vagina appear normal. There is no unusual discharge. There is no evidence of prolapse. The uterus is retroverted, nongravid size and nontender. There are no palpable adnexal masses or tenderness. RECTAL EXAM: negative for mass or tenderness and is negative for occult blood. EXTREMITIES: Nontender. IMPRESSION: 1. 43-year-old female whose is status post vasectomy, with normal gynecologic exam. PLAN: 1. Pap smear was deferred since she had a negative Pap smear cotest on 03/21/2023. 2. Self breast awareness was discussed with the patient. We have also discussed symptoms associated with inflammatory breast cancer. 3. Screening mammogram will be done today. 4. Osteoporosis prevention was discussed. I have stressed the importance of adequate calcium, vitamin D and regular exercise. Recommended amounts of calcium and vitamin D were also discussed. 5. She was advised to return in one year for her annual well woman exam.
--- NOTE | 2024-06-05 13:45 | MM ---
Reason for Exam: Screening (asymptomatic). Last mammogram was performed 1 year(s) and 2 month(s) ago. Patient History: Menarche at age 14. First Full-Term at age 26. Currently using Hormonal Contraceptives, starting at age 21. 05/2019, Excisional Biopsy on the Left side. Paternal grandmother had breast cancer, age 50. Maternal aunt had breast cancer, age 40. Last menstrual period: 05/20/2024 Risk Values: Jany 5 year model risk: 1.2%. NCI Lifetime model risk: 13.2%. Prior Study Comparison: 08/05/2020 Bilateral Diagnostic Mammogram, [facility]. 12/24/2021 Bilateral Screening Mammogram, [facility]. 03/21/2023 Bilateral MG 3D screening mammo w/cad, [facility]. Tissue Density: The breasts are heterogeneously dense, which may obscure small masses. Findings: Analyzed By CAD. There is no suspicious group of microcalcifications or new suspicious mass in either breast. Overall Assessment: Negative, BI-RAD 1 Management: Screening Mammogram of both breasts in 1 year. . Patient should continue monthly self-breast exams. A clinical breast exam by your physician is recommended on an annual basis. This exam should not preclude additional follow-up of suspicious palpable abnormalities. Note on Jany scores and lifetime risk: 1. A Jany score greater than 3% is considered moderate risk. If this is the case, consider specialist referral to assess eligibility for a risk reducing agent. 2. If overall lifetime risk for the development of breast cancer is 20% or higher, the patient may qualify for future screening with alternating mammogram and breast MRI. Electronically signed and approved by: Kristian Squires M.D. Radiologis
== END ==
LOC: WWCWWP 16:00
PROVIDERS: ATTEND Obstetrics & Gynecology
DX: Z12.31 Encounter for screening mammogram for malignant neoplasm of breast (principal); Z80.3 Family history of malignant neoplasm of breast; Z88.0 Allergy status to penicillin
CPT/HCPCS: 77063; 77067